=== PATIENT | female | born 1955 | race Caucasian/White ===

== ENCOUNTER → 2024-11-08 14:53 | Outpatient (CLI) | payer OTHER | END | disposition home or self-care (01) | LOC: RAD 10:38 | PROVIDERS: ATTEND Specialist | DX: Z01.818 Encounter for other preprocedural examination (principal) ==

== ENCOUNTER 2024-11-19 06:00 | Day surgery (SDC) | payer OTHER ==
[2024-11-16 16:18] VITALS: BP 137/83
[~2024-11-19] VITALS: Ht 154.9 cm; Wt 66.7 kg
[2024-11-19] MEDS ORDERED: CLINDAMYCIN PHOSPHATE 150 MG/ML (900mg) ONE (07:41)
[2024-11-19] MEDS ORDERED: ENOXAPARIN SODIUM 40 MG/0.4 ML SYRINGE SUBCUTANEO ONE (07:42)
[2024-11-19] MEDS ORDERED: TRANEXAMIC ACID 100MG/1ML (1000MG) AMPUL ONE (08:28)
[2024-11-19] MEDS ORDERED: LIDOCAINE HCL 1%/EPINEPHRINE 10 ML VIAL IJ ONE (09:09)
[2024-11-19] MEDS ORDERED: EPINEPHRINE HCL/PF 1 MG/ML AMPUL ONE (09:09)
[2024-11-19] MEDS ORDERED: LIDOCAINE HCL 1%/EPINEPHRINE 20ML VIAL IJ ONE (09:10)
[2024-11-19] MEDS ORDERED: BUPIVACAINE HCL/Mpf 0.5% 10ML VIAL ONE (09:11)
[2024-11-19] MEDS ORDERED: BUPIVACAINE HCL/MPF 0.5% 30ML VIAL ONE (09:11)
[2024-11-19] MEDS ORDERED: SUGAMMADEX SODIUM 200 MG/2 ML VIAL IV ONE (14:26)
[2024-11-19] MEDS ORDERED: ONDANSETRON HCL 2 MG/ML VIAL ONE (16:58)
== END 2024-11-19 20:15 | disposition home or self-care (01) ==
LOC: CIR.AMB 06:00
PROVIDERS: ATTEND Specialist
DX: N64.81 Ptosis of breast (principal); N62 Hypertrophy of breast

== ENCOUNTER 2024-12-05 18:55 | Emergency (ER) | payer OTHER ==
[~2024-12-05] VITALS: Ht 154.9 cm; Wt 65.8 kg
[2024-12-05 20:54] LABS: BASO % 0.9 % (0.1-1.2); EOS # 0.15 (0.04-0.54); EOS % 1.4 % (0.7-7.0); LYMPH # 1.41 (1.18-3.74); LYMPH % 13.0 % (19.3-53.1); MEAN PLATELET VOLUME 10.00 fl (9.4-12.4); MONO # 1.37 (0.24-0.82); NEUT # 7.80 (1.56-6.13); NEUT % 71.9 % (34.0-71.1); RED CELL DISTRIBUTION WIDTH 11.8 % (11.6-14.4)
[2024-12-05 20:55] LABS: MONO % 12.6 % (4.7-12.5)
[2024-12-05 20:56] LABS: ERYTHROCYTE SEDIMENTATION RATE 37 mm/hr (0-30)
[2024-12-05 21:02] LABS: URINE APPEARANCE Clear; URINE BILIRRUBIN Negative (NEGATIVE); URINE BLOOD Negative; URINE COLOR Yellow; URINE GLUCOSE Negative (NEGATIVE); URINE KETONE Negative (NEGATIVE); URINE LEUKOCYTE Negative; URINE NITRATE Negative; URINE PROTEIN Negative (NEGATIVE); URINE UROBILINOGEN 0.2 E.U./dl
[2024-12-05 21:05] LABS: URINE BACTERIA 17.9 uL (0.0-1933); URINE EPITHELIAL CELLS 10.1 uL (0.0-38.8); URINE RBC 2.9 uL (0.0-20.8); URINE WBC 51.4 uL (0.0-23.2)
[2024-12-05 21:13] LABS: INR 1.0
[2024-12-05 21:15] LABS: URINE CAST 0.29 uL (0.0-1.40)
[2024-12-05 21:19] LABS: ALT/SGPT 19.0 U/L (12-78); AST/SGOT 15.0 U/L (15-37); BILIRUBIN TOTAL 0.29 mg/dL (0.3-1.2); BUN CREA RATIO 14.0 (7.0-25.0); CREATININE SERUM 1.38 mg/dL (0.55-1.02); GFR 37.69; GLOBULINA 5.0 G/DL (2.4-3.5); GLUCOSE FASTING 129.0 mg/dL (65-100); OSMOLALITY SERUM 280.0 MOSM/KG (275-295)
[2024-12-05] MEDS ORDERED: levoFLOXacin IN DEXTROSE 5 % 5 MG/ML PIGGYBAG IV ONE (21:30)
[2024-12-06] MEDS ORDERED: LEVOFLOXACIN750 MG PO (00:02)
== END 2024-12-06 02:39 | disposition home or self-care (01) ==
LOC: ER 18:56
PROVIDERS: Preventive Medicine Public Health & General Preventive Medicine
DX: T81.49XA Infection following a procedure, other surgical site, initial encounter (principal); Y92.89 Other specified places as the place of occurrence of the external cause; Z88.8 Allergy status to other drugs, medicaments and biological substances; Z91.013 Allergy to seafood

== ENCOUNTER 2024-12-27 17:58 | Inpatient (IN) | payer OTHER ==
[~2024-12-27] VITALS: Ht 154.9 cm; Wt 64.4 kg
[~2024-12-27 17:58] MED LIST: LEVOFLOXACIN750 MG PO
--- NOTE | 2024-12-27 19:40 | NUR ---
SE RECIBE PTE ALERTA Y ORIENTADA X3 QUIEN REFIERE VENIR POR INDICACION DEL DR RICKY LEDBETTER, REFIERE QUE EL LE REALIZARA KAREN OPERACION EN EL SENO DERECHO. SE MIDEN S/V Y SE UBICA EN EMILIA CON BARANDAS ELEVADAS Y NIVEL MAS BAJO DE LA EMILIA.
[2024-12-27] MEDS ORDERED: FAMOTIDINE/PF 20 MG/2 ML VIAL IV SCH (21:33)
[2024-12-27] MEDS ORDERED: 0.9 % SODIUM CHLORIDE 1,000 ML IV ONE (21:45)
[2024-12-27] MEDS ORDERED: KETOROLAC TROMETHAMINE 30 MG VIAL IV ONE (21:45)
[2024-12-27] MEDS ORDERED: ACETAMINOPHEN 500 MG GEL..CAP PO PRN (22:00)
[2024-12-27] MEDS ORDERED: VANCOMYCIN HCL 1,000 MG VIAL IV ONE (22:00)
[2024-12-27] MEDS ORDERED: METRONIDAZOLE/SODIUM CHLORIDE 500 MG/100 ML PIGGYBACK IV ONE (22:00)
[2024-12-27 22:10] LABS: URINE APPEARANCE Cloudy; URINE BILIRRUBIN Negative (NEGATIVE); URINE BLOOD Negative; URINE COLOR Yellow; URINE GLUCOSE Negative (NEGATIVE); URINE KETONE Trace (NEGATIVE); URINE LEUKOCYTE Trace; URINE NITRATE Negative; URINE PROTEIN Negative (NEGATIVE); URINE UROBILINOGEN 0.2 E.U./dl
[2024-12-27 22:14] LABS: URINE BACTERIA 4.7 uL (0.0-1933); URINE EPITHELIAL CELLS 13.6 uL (0.0-38.8); URINE WBC 6.7 uL (0.0-23.2)
[2024-12-27] MEDS ORDERED: VANCOMYCIN HCL 1,000 MG VIAL IV SCH (22:18)
[2024-12-27] MEDS ORDERED: CLONAZEPAM 1 MG TABLET PO SCH (22:19)
[2024-12-27] MEDS ORDERED: FAMOTIDINE/PF 20 MG in 0.9 % SODIUM CHLORIDE 8 ML IV PUSH SCH (22:19)
[2024-12-27] MEDS ORDERED: KETOROLAC TROMETHAMINE 30 MG VIAL IV SCH (22:20)
[2024-12-27 22:23] LABS: URINE CAST 0.14 uL (0.0-1.40); URINE RBC 1.7 uL (0.0-20.8)
--- NOTE | 2024-12-27 22:29 | NUR ---
SE EDUCA PACIENTE SOBRE EL [place] MEDICO Y ESTA REFIERE NETENDER. SE CANALIZA Y SE ADMINISTRA MEDICAMENTOS SHAINA ORDEN MEDICA. SE GUIDO MUESTRAS DE LABORATORIOS Y SE ENVIAN. SE ENTREGA ENVASE DE U/A.
[2024-12-27] MEDS ORDERED: ACETAMINOPHEN 325 MG TABLET PO PRN (22:30)
[2024-12-27] MEDS ORDERED: 0.9 % SODIUM CHLORIDE 1,000 ML IV SCH (22:30)
[2024-12-27] MEDS ORDERED: KETOROLAC TROMETHAMINE 30 MG VIAL ONE (22:32)
[2024-12-27] MEDS ORDERED: FAMOTIDINE/PF 20 MG/2 ML VIAL ONE (22:32)
[2024-12-27 23:31] LABS: BASO % 0.9 % (0.1-1.2); EOS # 0.27 (0.04-0.54); EOS % 3.1 % (0.7-7.0); LYMPH # 1.95 (1.18-3.74); LYMPH % 22.3 % (19.3-53.1); MEAN PLATELET VOLUME 9.80 fl (9.4-12.4); MONO # 1.38 (0.24-0.82); NEUT # 5.06 (1.56-6.13); NEUT % 57.7 % (34.0-71.1); RED CELL DISTRIBUTION WIDTH 12.1 % (11.6-14.4)
[2024-12-27 23:32] LABS: INR 1.01
[2024-12-27 23:38] LABS: MONO % 15.8 % (4.7-12.5)
[2024-12-27 23:42] LABS: ALT/SGPT 39.0 U/L (12-78); AST/SGOT 47.0 U/L (15-37); BILIRUBIN TOTAL 0.25 mg/dL (0.3-1.2); BUN CREA RATIO 23.0 (7.0-25.0); CREATININE SERUM 0.87 mg/dL (0.55-1.02); GFR 64.18; GLOBULINA 3.4 G/DL (2.4-3.5); GLUCOSE FASTING 121.0 mg/dL (65-100); OSMOLALITY SERUM 291.0 MOSM/KG (275-295)
[2024-12-28] MEDS ORDERED: PIPERACILLIN/TAZOBACTAM SODIUM 3.375 GM VIAL IV SCH (14:00)
[2024-12-28] MEDS ORDERED: POVIDONE-IODINE 118 ML BOTT TOP ONE (16:33)
[2024-12-28 16:48] VITALS: BP 121/71; O2SAT 100
[2024-12-28] MEDS ORDERED: LIDOCAINE HCL 1%/EPINEPHRINE 20ML VIAL IJ ONE (16:56)
[2024-12-28] MEDS ORDERED: LINEZOLID IN DEXTROSE 5% 300 ML IV SCH (17:00)
[2024-12-28] MEDS ORDERED: LACTOBACILLUS ACIDOPHILUS 1 CAP CAP PO SCH (17:00)
[2024-12-28] MEDS ORDERED: ONDANSETRON HCL 2 MG/ML VIAL IV NR (17:45)
[2024-12-28] MEDS ORDERED: KETOROLAC TROMETHAMINE 30 MG VIAL ONE (19:34)
[2024-12-29 00:46] VITALS: BP 109/72; O2SAT 100
[2024-12-29 06:25] LABS: BASO % 0.7 % (0.1-1.2); EOS # 0.36 (0.04-0.54); EOS % 4.0 % (0.7-7.0); LYMPH # 1.74 (1.18-3.74); LYMPH % 19.1 % (19.3-53.1); MEAN PLATELET VOLUME 9.80 fl (9.4-12.4); MONO # 1.07 (0.24-0.82); MONO % 11.7 % (4.7-12.5); NEUT # 5.86 (1.56-6.13); NEUT % 64.3 % (34.0-71.1); RED CELL DISTRIBUTION WIDTH 12.2 % (11.6-14.4)
[2024-12-29 07:13] LABS: ALT/SGPT 38.0 U/L (12-78); AST/SGOT 37.0 U/L (15-37); BILIRUBIN TOTAL 0.58 mg/dL (0.3-1.2); BUN CREA RATIO 19.0 (7.0-25.0); CREATININE SERUM 0.74 mg/dL (0.55-1.02); GFR 77.36; GLOBULINA 2.8 G/DL (2.4-3.5); GLUCOSE FASTING 86.0 mg/dL (65-100); OSMOLALITY SERUM 287.0 MOSM/KG (275-295)
[2024-12-29 08:00] VITALS: BP 126/78; O2SAT 98
[2024-12-29] MEDS ORDERED: 0.9 % SODIUM CHLORIDE 10 ML VIAL IJ ONE (08:08)
[2024-12-29 16:57] VITALS: BP 104/62; O2SAT 98
[2024-12-29] MEDS ORDERED: CLONAZEPAM 0.5 MG TABLET PO SCH (17:00)
[2024-12-30 00:37] VITALS: BP 110/63; O2SAT 97
[2024-12-30 11:03] VITALS: BP 145/77; O2SAT 97
[2024-12-30] MEDS ORDERED: BISMUTH SUBSALICYLATE 524 MG/30 ML BLIST.PACK PO PRN (16:00)
[2024-12-30 18:14] VITALS: BP 150/92; O2SAT 98
[2024-12-31 01:09] VITALS: BP 125/75; O2SAT 98
[2024-12-31 06:29] LABS: BASO % 0.7 % (0.1-1.2); EOS # 0.43 (0.04-0.54); EOS % 5.7 % (0.7-7.0); LYMPH # 2.34 (1.18-3.74); LYMPH % 31.0 % (19.3-53.1); MEAN PLATELET VOLUME 9.80 fl (9.4-12.4); MONO # 0.94 (0.24-0.82); NEUT # 3.75 (1.56-6.13); NEUT % 49.7 % (34.0-71.1); RED CELL DISTRIBUTION WIDTH 12.0 % (11.6-14.4)
[2024-12-31 06:57] LABS: MONO % 12.5 % (4.7-12.5)
[2024-12-31 07:00] LABS: ALT/SGPT 27.0 U/L (12-78); AST/SGOT 19.0 U/L (15-37); BILIRUBIN TOTAL 0.41 mg/dL (0.3-1.2); BUN CREA RATIO 9.0 (7.0-25.0); CREATININE SERUM 0.76 mg/dL (0.55-1.02); GFR 75.02; GLOBULINA 2.8 G/DL (2.4-3.5); GLUCOSE FASTING 95.0 mg/dL (65-100); OSMOLALITY SERUM 286.0 MOSM/KG (275-295)
[2024-12-31 07:52] VITALS: BP 143/84; O2SAT 97
[2024-12-31 16:00] VITALS: BP 136/84; O2SAT 97
[2024-12-31] MEDS ORDERED: LINEZOLID 600 MG TABLET PO SCH (17:00)
[2025-01-01 00:30] VITALS: BP 104/60; O2SAT 98
[2025-01-01 08:28] VITALS: BP 128/76; BP 136/82; O2SAT 94; O2SAT 99
[2025-01-01 16:00] VITALS: BP 130/77; O2SAT 99
[2025-01-01] MEDS ORDERED: AMPICILLIN SODIUM/SULBACTAM NA 3,000 MG VIAL IV SCH (20:00)
[2025-01-02 01:32] VITALS: BP 135/78; O2SAT 100
[2025-01-02 08:20] VITALS: BP 125/74; O2SAT 97
== END 2025-01-02 15:14 | disposition home or self-care (01) | DRG 572 ==
LOC: ER 17:59 → SURH 22:22
PROVIDERS: General Practice; Internal Medicine Infectious Disease; ADMIT Specialist; ATTEND Specialist
PROC: 0HBT0ZX Excision of Right Breast, Open Approach, Diagnostic (ICD-10-PCS; 2024-12-28)
PROC: 3E10X8Z Irrigation of Skin and Mucous Membranes using Irrigating Substance (ICD-10-PCS; 2024-12-28)
PROC: 0JB60ZZ Excision of Chest Subcutaneous Tissue and Fascia, Open Approach (ICD-10-PCS; principal; 2024-12-28 15:00)
DX: N61.1 Abscess of the breast and nipple (principal); L08.89 Other specified local infections of the skin and subcutaneous tissue